=== PATIENT | female | born 1985 ===

== ENCOUNTER 2021-03-13 08:30 | Inpatient (IN) | payer MEDICAID, OTHER ==
[2021-03-13] MEDS ORDERED: FAMOTIDINE 20 MG/2 ML INJ IV NR (09:21)
[2021-03-13] MEDS ORDERED: BICITRA ORAL LIQD 30ML PO NR (09:21)
[2021-03-13] MEDS ORDERED: METOCLOPRAMIDE 10 MG/2 ML INJ IV NR (09:21)
[2021-03-13] MEDS: LACTATED RINGERS 1,000 ML IV SCH ×3 (09:30→19:13)
[2021-03-13 09:37] LABS: Basophils % (Auto) 0.2 % (0.0-1.8); Eosinophils # (Auto) 0.1 K/mm3 (0.0-0.4); Eosinophils % (Auto) 1.4 % (0.0-4.3); Hemoglobin 12.8 gm/dl (10.1-14.3); Lymphocytes # (Auto) 2.6 K/mm3 (1.2-5.4); Lymphocytes % (Auto) 38.4 % (13.4-35.0); Mean Corpuscular HGB Conc 36 % (30-34); Mean Corpuscular Volume 96 fl (79-97); Monocytes # (Auto) 0.4 K/mm3 (0.0-0.8); Monocytes % (Auto) 6.4 % (0.0-7.3); Platelet Count 207 K/mm3 (140-440); Red Blood Count 3.76 M/mm3 (3.65-5.03); Red Cell Distribution Width 13.5 % (13.2-15.2)
[2021-03-13] MEDS ORDERED: ceFAZolin/Water 2 GM/20 ML 2 GM/20 ML SYRINGE IV NR ×2 (10:00→12:00)
[2021-03-13] MEDS ORDERED: OXYTOCIN DRIP 30 UNITS/500 ML BAG IV SCH ×3 (10:00→14:00)
[2021-03-13] MEDS ORDERED: miSOPROStol 200 MCG TAB ONE (10:19)
[2021-03-13] MEDS ORDERED: METHYLERGONOVINE MALEATE 0.2 MG/ML VIAL IM ONE (10:20)
[2021-03-13] MEDS ORDERED: dexAMETHasone 20 MG/5 ML VIAL ONE (10:43)
[2021-03-13] MEDS ORDERED: KETOROLAC 30 MG/1 ML INJ ONE (10:43)
[2021-03-13] MEDS ORDERED: BUPIVACAINE/PF (0.5%) 5 MG/1 ML 30 ML VIAL INFILTRATI ONE (10:43)
[2021-03-13] MEDS ORDERED: ONDANSETRON 4 MG/2 ML INJ ONE (10:43)
--- NOTE | 2021-03-13 10:52 | Anesthesia Day of Surgery ---
Anesthesia Day of Surgery - Day of Surgery Patient Examined: Yes Patient H&P Reviewed: Yes Patient is NPO: Yes
--- NOTE | 2021-03-13 10:52 | Anesthesia Consultation ---
Anesthesia Consult and Med Hx Date of service: 03/13/21 - Airway Anesthetic Teeth Evaluation: Good ROM Head & Neck: Adequate Mental/Hyoid Distance: Adequate Mallampati Class: Class II Intubation Access Assessment: Probably Good - Pulmonary Exam CTA: Yes - Cardiac Exam Cardiac Exam: RRR - Pre-Operative Health Status ASA Pre-Surgery Classification: ASA2 Proposed Anesthetic Plan: Spinal - Pulmonary Hx Asthma: No COPD: No Hx Pneumonia: No - Cardiovascular System Hx Hypertension: No - Central Nervous System Hx Seizures: No Hx Psychiatric Problems: No - Endocrine Hx Renal Disease: No Hx End Stage Renal Disease: No Hx Hypothyroidism: No Hx Hyperthyroidism: No - Hematic Hx Anemia: No Hx Sickle Cell Disease: No - Other Systems Hx Alcohol Use: No
[2021-03-13] MEDS ORDERED: FAMOTIDINE 20 MG/2 ML INJ IV ONE (11:17)
[2021-03-13] MEDS ORDERED: BICITRA ORAL LIQD 30ML PO ONE (11:17)
[2021-03-13] MEDS ORDERED: METOCLOPRAMIDE 10 MG/2 ML INJ IV ONE (11:17)
--- NOTE | 2021-03-13 11:26 | History and Physical Report ---
History of Present Illness Date of examination: 03/13/21 Date of admission: 03/13/21 08:30 Chief complaint: previous X 2 History of present illness: This is Dr. Wang dictating history and physical patient . The patient is a 36-year-old female 3 para 2-0-0-2 who has a history of 2 previous section. She has been cared for at the [facility] and she has had approximately 10 visits. At the clinic her blood type was O+ antibody screen was negative hematocrit 35.8% Pap test was normal rubella was immune VDRL was negative. Urine culture was negative. Hepatitis B was negative. HIV test was negative. Chlamydia and gonorrhea tests were negative. She did have ultrasound normal in the [facility] was ne gative. Repeat hematocrit was 33.5% diabetic screen was 92 VDRL was negative on 12/21/2020. Her past medical history was negative she is admitted now for repeat low transverse section. Past History Past Medical History: no pertinent history Past Surgical History: section (TIMES 2.) Family/Genetic History: none Social history: single - Obstetrical History Expected Date of Delivery: 03/20/21 Actual Gestation: 39 Week(s) 0 Day(s) : 3 Para: 2 Hx # Term Pregnancies: 2 Number of Pregnancies: 0 Spontaneous Abortions: 0 Induced : 0 Medications and Allergies Allergies Allergy/AdvReac Type Severity Reaction Status Date / Time No Known Allergies Allergy Unverified 03/13/21 09:20 Active Meds: Active Medications Citric Acid/Sodium Citrate (Bicitra Oral Liqd 30ml) 30 ml PO ONCE ONE Stop: 03/13/21 11:18 Famotidine (Famotidine 20 Mg/2 Ml Inj) 20 mg IV ONCE NR Stop: 03/13/21 12:00 Last Admin: 03/13/21 10:29 Dose: 20 mg Documented by: Famotidine (Famotidine 20 Mg/2 Ml Inj) 20 mg IV ONCE ONE Stop: 03/13/21 11:18 Lactated Ringer's (Lactated Ringers) 1,000 mls @ 2,250 mls/hr IV PREOP ANNE Stop: 03/14/21 09:57 Last Admin: 03/13/21 10:31 Dose: 2,250 mls/hr Documented by: Oxytocin/Sodium Chloride (Pitocin/Ns 30 Unit/500ml) 30 units in 500 mls @ 0 mls/hr IV TITR ANNE; Protocol Cefazolin Sodium (Ancef/Sterile Water 2 Gm/20 Ml) 2 gm in 20 mls @ 80 mls/hr IV PREOP NR; Protocol Stop: 03/13/21 20:00 Lactated Ringer's (Lactated Ringers) 1,000 mls @ 2,250 mls/hr IV PREOP ANNE Stop: 03/14/21 11:57 Oxytocin/Sodium Chloride (Pitocin/Ns 30 Unit/500ml) 30 units in 500 mls @ 0 mls/hr IV TITR ANNE; Protocol Cefazolin Sodium (Ancef/Sterile Water 2 Gm/20 Ml) 2 gm in 20 mls @ 80 mls/hr IV PREOP NR; Protocol Metoclopramide HCl (Metoclopramide 10 Mg/2 Ml Inj) 10 mg IV ONCE ONE Stop: 03/13/21 11:18 Review of Systems All systems: negative - Vital Signs Vital signs: Vital Signs Pulse BP 81 122/63 03/13/21 09:19 03/13/21 09:19 Temp Pulse Resp BP Pulse Ox 98.3 F 81 16 122/63 03/13/21 09:24 03/13/21 09:24 03/13/21 09:24 03/13/21 09:24 - Physical Exam Breasts: Cardiovascular: Regular rate, Normal S1, Normal S2 Lungs: Positive: Clear to auscultation Abdomen: Positive: normal appearance, soft, normal bowel sounds Genitourinary (Female): Positive: normal external genitalia Vulva: both: normal Vagina: Positive: normal moisture Cervix: Negative: lesion, discharge Uterus: Positive: enlarged Adnexa: both: normal Anus/Rectum: Positive: normal perianal skin, heme negative. Negative: rectal mass, hemorrhoids Extremities: Deep Tendon Reflex Grade: Normal +2 - Obstetrical FHR: category 1 Uterine Contraction Monitor Mode: External Uterine Contraction Pattern: Absent Uterine Tone Measurement Phase: Resting Results Result Diagrams: 03/13/21 Unknown Abnormal lab results 03/13/21 Range/Units Unknown MCH 34 H (28-32) pg MCHC 36 H (30-34) % Lymph % (Auto) 38.4 H (13.4-35.0) % All other labs normal. Assessment and Plan 39 weeks intrauterine previous section x2 plan repeat low transverse section.
[2021-03-13] MEDS ORDERED: ceFAZolin/STERILE WATER 2 GM/20 ML SYRINGE IV ONE (11:55)
[2021-03-13] MEDS ORDERED: GLYCOPYRROLATE 0.4 MG/2 ML INJ ONE (12:09)
[2021-03-13] MEDS ORDERED: LACTATED RINGERS 1,000 ML ONE (12:09)
[2021-03-13] MEDS ORDERED: PHENYLEPHRINE/NS 1,000 MCG/10 ML SYRINGE (OR USE) IV ONE (12:38)
[2021-03-13] MEDS ORDERED: HETASTARCH 6% 500 ML IV ONE (12:53)
--- NOTE | 2021-03-13 13:21 | Procedure Note ---
Date of procedure: 03/13/21 Pre-op diagnosis: 39 wks iup, previous section x 2, desire for btl/ Post-op diagnosis: other (foot;ing breech/) Procedure: The patient was taken to the operatory and prepared for a repeat section and bilateral tubasl ligation.. She was given a spinal anesthetic. She also was given an indwelling Ybarra catheter within place the patient supine position she was prepped and draped in usual fashion. And we had a timeout and we all concurred. We created a Pfannenstiel incision along the previous Pfannenstiel incision and we entered the abdominal cavity anatomically. Vesicouterine peritoneum was opened transversely with Metzenbaums bladder was sharply dissected off the lower uterine segment. A low transverse incision made in lower uterine segment with a scalpel and fetus in footling breech presentation was delivered without incid ent. There was a nuchal cord as we delivered the baby. The oropharynx and nasopharynx suction. Cord was doubly clamped and cut fetus passed off the table to the nurses in attendance. The placenta was removed intact and there was donated. Uterus then delivered extra-abdominal uterine incision uterus was cleaned of debris membranes and tissue uterine incision was repaired in 2 layers first layer was in deep manage using running locking #0 chromic secondary to superficial myometrium with running locking 0 chromic this uterine incision was hemostatic. Vesicouterine peritoneum was repaired running 2-0 chromic on a GI needle we then addressed the tubal ligation versus the fallopian tubes were grasped with a Rashid mid isthmus and a window was made in the broad ligament fallopian tube with the Bovie and a 2 cm segment of fallopian tube was tied distally and proximally with 2-0 chromic suture these were tied and cut short the segment portion of fallopian tube was removed with Metzenbaums same procedure done on both right and left fallopian tube this area was hemostatic. Uterus brought back into the abdominal care instrument count needle lap and sponge count was correct all instruments removed from abdominal cavity. Anterior abdominal peritoneum was repaired with running 2-0 chromic by reapproximating the rectus muscles in the midline because the patient had some old adhesions from previous section. Anterior abdominal peritoneum and fascia was repaired with running interlocking 0 Vicryl. Subcutaneous tissue repaired running 2-0 chromic the skin was reapproximated using running subcuticular 4-0 Vicryl on a Alfonzo needle in cover with Dermabond the patient tolerated procedure well she was then allowed to return to recovery room in stable condition end of operative note on Millicent Fowler by Dr. Kwame judd. Anesthesia: spinal Surgeon: VAHE ZAVALA Estimated blood loss: other (500 ccs) IV fluids: 1,000 Urine output: 100 Pathology: none Specimen disposition: other (donated) Condition: stable Disposition: PACU
[2021-03-13] MEDS ORDERED: LANOLIN/ZINC/DIMETHICONE (LANSINOH) 7 GM TP PRN (13:30)
--- NOTE | 2021-03-13 13:36 | Progress Note ---
Spinal Anesthesia Block - Spinal Anesthesia Block Start Time: 11:45 Stop Time: 11:47 Performed by:: KIP GAMEZ Procedure: Sitting, sterile chlorahexadine 0.5% prep/drape, 1% lidocaine skin local, 25G spinal needle + introducer at L3-4, + CSF, - Heme, [1.9 ml 0.5% bupivacaine + 10 mcg dexmedetomidine] injected, drape removed, patient positioned supine with left uterine displacement, and spinal level verified to be adequate prior to surgery.
--- NOTE | 2021-03-13 13:36 | Progress Note ---
Regional Anesthesia Block - Regional Anesthesia Block Start Time: 13:25 Stop Time: 13:30 Performed By:: KIP GAMEZ Procedure: U/S guided bilateral tap block performed for post-operative pain requested by Dr. Wang. H&P & labs reviewed. Procedure explained, questions answered, consent obtained. Patient in the supine position with ekg, blood pressure cuff and pulse ox on and working in PACU. Timeout performed immediately before start of procedure. Probe placed in the mid-axillary line and the external oblique, internal oblique, and transverse abdominus muscles identified. Skin was cleansed with chlorahexadine 0.5% and allowed to dry. A 4" 20 G Mckeon echogenic needle was advanced in plane until the tip was in the fascial plane between the internal oblique and the transverse abdominus. After negative aspiration 35 ml/side of [30 ml 0.5% Bupivacaine], [10 mg dexamethasone], and [40 ml sterile saline] was injected in 5 ml increments with negative aspiration in between. Patient tolerated procedure well.
[2021-03-13] MEDS ORDERED: NALOXONE 0.4 MG/1 ML INJ IV PRN (14:00)
[2021-03-13] MEDS ORDERED: ONDANSETRON 4 MG/2 ML INJ IV PRN (14:00)
[2021-03-13] MEDS ORDERED: SIMETHICONE 80 MG CHEW TAB PO PRN (14:00)
[2021-03-13] MEDS ORDERED: WITCH HAZEL/ GLYCERIN PAD TP PRN (14:00)
[2021-03-13] MEDS ORDERED: MORPHINE 4 MG/1 ML INJ IV PRN (14:00)
[2021-03-13 18:35] LABS: Basophils % (Auto) 0.1 % (0.0-1.8); Eosinophils % (Auto) 0.1 % (0.0-4.3); Hematocrit 37.6 % (30.3-42.9); Hemoglobin 13.1 gm/dl (10.1-14.3); Lymphocytes # (Auto) 1.5 K/mm3 (1.2-5.4); Lymphocytes % (Auto) 10.9 % (13.4-35.0); Mean Corpuscular HGB Conc 35 % (30-34); Mean Corpuscular Volume 96 fl (79-97); Monocytes # (Auto) 0.5 K/mm3 (0.0-0.8); Monocytes % (Auto) 3.3 % (0.0-7.3); Platelet Count 179 K/mm3 (140-440); Red Blood Count 3.93 M/mm3 (3.65-5.03); Red Cell Distribution Width 13.5 % (13.2-15.2)
[2021-03-13] MEDS: KETOROLAC 30 MG/1 ML INJ IV PRN (20:58)
[2021-03-14] MEDS: LACTATED RINGERS 1,000 ML IV SCH ×2 (00:42→09:59)
[2021-03-14 01:01] LABS: Hemoglobin 11.6 gm/dl (10.1-14.3); Lymphocytes # (Auto) 1.6 K/mm3 (1.2-5.4); Lymphocytes % (Auto) 12.8 % (13.4-35.0); Monocytes # (Auto) 0.2 K/mm3 (0.0-0.8); Monocytes % (Auto) 1.8 % (0.0-7.3)
[2021-03-14 01:11] LABS: Hematocrit 34.4 % (30.3-42.9); Mean Corpuscular HGB Conc 34 % (30-34); Mean Corpuscular Volume 96 fl (79-97); Platelet Count 199 K/mm3 (140-440); Red Blood Count 3.57 M/mm3 (3.65-5.03); Red Cell Distribution Width 13.6 % (13.2-15.2)
[2021-03-14] MEDS: KETOROLAC 30 MG/1 ML INJ IV PRN ×2 (05:40→11:57)
[2021-03-14] MEDS: IBUPROFEN 800 MG TAB PO PRN ×2 (08:15→18:26)
--- NOTE | 2021-03-14 08:54 | Progress Note ---
Assessment and Plan POD #1 A: S/P LTCS with BTL p: Continue routine pp care Encourage ambulation D/C home tomm if stable Subjective - Subjective Date of service: 03/14/21 Principal diagnosis: s/p repeat LTCS with BTL Patient reports: appetite normal, voiding normally, pain well controlled, ambulating normally, other (Pt reports no gas yet) : doing well, bottle feeding Objective - Vital Signs Latest vital signs: Vital Signs Temp Pulse Resp BP BP Pulse Ox 03/14/21 05:40 20 03/14/21 04:48 98.7 F 61 16 97/52 03/14/21 00:49 98.3 F 64 16 102/56 98 03/13/21 20:58 18 03/13/21 20:32 93/49 03/13/21 20:00 98.6 F 75 18 105/63 03/13/21 19:00 46 L 18 99 03/13/21 16:00 97.3 F L 56 L 16 113/68 97 03/13/21 14:25 97.8 F 63 12 120/66 98 03/13/21 14:15 97.5 F L 61 16 109/66 97 03/13/21 14:00 64 15 109/62 98 03/13/21 13:55 57 L 14 114/71 97 03/13/21 13:50 67 14 112/73 98 03/13/21 13:45 67 16 117/69 97 03/13/21 13:40 97.9 F 69 13 111/69 98 03/13/21 09:24 98.3 F 81 16 122/63 03/13/21 09:19 81 122/63 Intake and Output 03/13/21 03/14/21 03/14/21 22:59 06:59 14:59 Intake Total 300 200 Output Total 1400 2300 Balance -1100 -2100 Intake: IV 300 Oral 200 Output: Urine 1400 2300 Indwelling Catheter 900 900 Void 1400 Other: Total, Intake Amount 200 Total, Output Amount 900 800 # Voids Void 1 - Exam Breasts: Present: normal Abdomen: Present: normal appearance, soft, normal bowel sounds Vulva: both: normal Uterus: Present: normal, firm, fundal height below umbilicus Extremities: Present: normal Incision: Present: normal, dry, intact, dressed - Labs Labs: Abnormal lab results 03/13/21 03/13/21 03/14/21 Range/Units 18:13 Unknown 00:10 WBC 13.7 H 12.2 H (4.5-11.0) K/mm3 RBC 3.57 L (3.65-5.03) M/mm3 MCH 33 H 34 H (28-32) pg MCHC 35 H 36 H (30-34) % Lymph % (Auto) 10.9 L 38.4 H 12.8 L (13.4-35.0) % Seg Neutrophils % 85.6 H 85.4 H (40.0-70.0) % Seg Neutrophils # 11.7 H 10.4 H (1.8-7.7) K/mm3
[2021-03-14] MEDS: PRENATAL VIT27-FE FUMARATE-FOLIC ACID VIT TAB PO SCH (09:59)
[2021-03-14] MEDS ORDERED: TETANUS,DIPH,PERTUSS(ACELL) VACCINE 0.5 ML SYRINGE IM ONE (13:14)
[2021-03-14] MEDS ORDERED: MEASLES, MUMPS & RUBELLA 12,500 UNIT/0.5 ML VACCINE SUB-Q ONE (13:14)
--- NOTE | 2021-03-14 18:02 | Post Anesthesia Evaluation ---
- Post Anesthesia Evaluation Patient Participated: Yes Airway Patent: Yes Stable Respiratory Function: Yes Nausea/Vomiting: No Temp > 96.8F: Yes Pain Manageable: Yes Adequeate Hydration: Yes Anesthesia Complications: No Block Receding Appropriately: Yes
[2021-03-15] MEDS: IBUPROFEN 800 MG TAB PO PRN ×2 (00:22→08:02)
--- NOTE | 2021-03-15 09:32 | Discharge Summary ---
Providers - Providers Date of Admission: 03/13/21 08:30 Date of discharge: 03/20/21 Attending physician: VAHE ZAVALA MD Primary care physician: VAHE ZAVALA MD Hospitalization Reason for admission: section Delivery: Procedure: section Incision: normal Other procedures: none, tubal ligation complications: none Discharge diagnosis: IUP at term delivered Hospital course: benign Condition at discharge: Good Disposition: DC-01 TO HOME OR SELFCARE Plan - Provider Discharge Summary Additional instructions: [] Smoking cessation referral if applicable(refer to patient education folder for contact #) [] Refer to [facility] Booklet Call your doctor immediately for: * Fever > 100.5 * Heavy vaginal bleeding ( >1 pad per hour) * Severe persistent headache * Shortness of breath * Reddened, hot, painful area to leg or breast * Drainage or odor from incision. * Keep incision clean and dry at all times and follow doctor's instructions regarding bathing/showering - Follow up plan Follow up: VAHE ZAVALA MD [Primary Care Provider] - 7 Days
[2021-03-15] MEDS: PRENATAL VIT27-FE FUMARATE-FOLIC ACID VIT TAB PO SCH (10:05)
[2021-03-15 15:23] VITALS: BP 112/68
== END 2021-03-15 14:20 | disposition home or self-care (01) | DRG 785 ==
LOC: APU 08:30 → OB 14:33
PROC: 10D00Z1 Extraction of Products of Conception, Low, Open Approach (ICD-10-PCS; principal; 2021-03-13)
PROC: 0UB70ZZ Excision of Bilateral Fallopian Tubes, Open Approach (ICD-10-PCS; 2021-03-14)
PROC: 3E0T3BZ Introduction of Anesthetic Agent into Peripheral Nerves and Plexi, Percutaneous Approach (ICD-10-PCS; 2021-03-14)
PROC: 3E0234Z Introduction of Serum, Toxoid and Vaccine into Muscle, Percutaneous Approach (ICD-10-PCS; 2021-03-14)
PROC: 3E0134Z Introduction of Serum, Toxoid and Vaccine into Subcutaneous Tissue, Percutaneous Approach (ICD-10-PCS; 2021-03-14)
DX: O34.211 Maternal care for low transverse scar from previous cesarean delivery (principal); Z3A.39 39 weeks gestation of pregnancy; Z37.0 Single live birth; Z23 Encounter for immunization; Z20.822 Contact with and (suspected) exposure to COVID-19
CPT/HCPCS: 36415; 85025; 86592; 86850; 86900; 86901; 88302; G0378; J0690; J1100; J1885; J2370; J2405; J2765; J3490; J7120; U0003